=== PATIENT | female | born 1945 | race Caucasian/White ===

== ENCOUNTER 2022-12-08 10:41 | Outpatient (RCR) | payer MEDICARE, SELFPAY | END 2022-12-08 10:45 | disposition home or self-care (01) | LOC: PT 10:41 | PROVIDERS: Visit Provider Nurse Practitioner | DX: I89.0 Lymphedema, not elsewhere classified (principal) | CPT/HCPCS: 97162 ==

== ENCOUNTER 2023-03-13 13:04 | Outpatient (CLI) | payer MEDICARE, SELFPAY | END 2023-03-13 13:25 | disposition home or self-care (01) | LOC: INF 13:06 | PROVIDERS: PCP Nurse Practitioner; Visit Provider Nurse Practitioner | DX: D50.9 Iron deficiency anemia, unspecified (principal); Z45.2 Encounter for adjustment and management of vascular access device | CPT/HCPCS: 96523; J1642 ==

== ENCOUNTER 2023-05-08 10:51 | Outpatient (CLI) | payer MEDICARE, SELFPAY ==
[2023-05-08 13:06] VITALS: BMI 40.1
== END 2023-05-08 11:30 | disposition home or self-care (01) ==
LOC: INF 10:52
PROVIDERS: PCP Nurse Practitioner; Visit Provider Nurse Practitioner
DX: D50.9 Iron deficiency anemia, unspecified (principal)
CPT/HCPCS: 96523; J1642

== ENCOUNTER 2023-06-19 10:22 | Outpatient (CLI) | payer MEDICARE, SELFPAY | END 2023-06-19 10:39 | disposition home or self-care (01) | PROVIDERS: PCP Nurse Practitioner; Visit Provider Nurse Practitioner | DX: D50.9 Iron deficiency anemia, unspecified (principal); Z45.2 Encounter for adjustment and management of vascular access device | CPT/HCPCS: 96523; J1642 ==

== ENCOUNTER → 2023-07-11 09:35 | Outpatient (CLI) | payer MEDICARE, SELFPAY ==
[2023-07-11 12:49] LABS: Microscopic, Urine URINE MICROSCOPIC (MICROSCOPIC)
[2023-07-11 13:53] LABS: Appearance,Urine CLOUDY (Clear); Bilirubin,Urine Negative (Negative); Blood, Urine 1+ (Negative); Color,Urine YELLOW (Yellow); Glucose,Urine (UA) Negative (Negative); Ketones,Urine Negative (Negative); Leukocyte Esterase,Urine 2+ (Negative); Nitrate,Urine Negative (Negative); Protein,Urine Negative (Negative); Specific Gravity, Urine 1.025 (1.005-1.030); Urobilinogen,Urine 0.2 EU/dl (0.2)
[2023-07-11 14:05] LABS: Erythrocyte Sedimentation Rate 54 mm/hr (0-30)
[2023-07-11 14:13] LABS: WBC,Urine 50-100 #/hpf (0-3)
[2023-07-11 14:14] LABS: Bacteria,Urine 1+ /lpf
[2023-07-11 14:54] LABS: Benzodiazepines Screen,Urine Negative ng/ml (<200)
[2023-07-11 14:55] LABS: Amphetamine/Metha Screen,Urine Negative ng/ml (<1000)
[2023-07-11 14:57] LABS: Cannabinoid Screen,Urine Negative ng/ml (<50); Cocaine Screen,Urine Negative ng/ml (<300)
[2023-07-11 14:58] LABS: Methadone Screen,Urine Negative ng/ml (<300); Opiate Screen,Urine Negative ng/ml (<300)
[2023-07-11 14:59] LABS: Phencyclidine Screen,Urine Negative ng/ml (<25)
[2023-07-11 15:13] LABS: C-Reactive Protein 10.2 mg/L (0-4)
[2023-07-11 15:15] LABS: Barbiturates Screen,Urine Negative ng/ml (<200)
[2023-07-11 15:39] LABS: Folate > 20.00 ng/mL
[2023-07-11 18:11] LABS: Hemoglobin A1C 5.5 % (4.0-6.0)
[2023-07-12 10:14] LABS: Rapid Plasma Reagin Ab Titer Non Reactive titer (NonRea<1:1)
== END ==
PROVIDERS: PCP Nurse Practitioner; Visit Provider Nurse Practitioner Family
DX: G93.40 Encephalopathy, unspecified (principal); R44.3 Hallucinations, unspecified; E11.9 Type 2 diabetes mellitus without complications; R51.9 Headache, unspecified; R26.9 Unspecified abnormalities of gait and mobility; G47.30 Sleep apnea, unspecified; I10 Essential (primary) hypertension; B96.1 Klebsiella pneumoniae [K. pneumoniae] as the cause of diseases classified elsewhere; R42 Dizziness and giddiness; Z79.899 Other long term (current) drug therapy
CPT/HCPCS: 36415; 80305; 81001; 82746; 83036; 85651; 86140; 86593; 87086; 95813; 95816

== ENCOUNTER 2023-07-13 07:43 | Observation (INO) | payer MEDICARE, SELFPAY ==
[2023-07-13] VITALS (12 sets, daily range): BP systolic 91–144; BP diastolic 55–93; PULSE 78–111; RESP 16–21; TEMP 36.7–38.7; O2SAT 94–99; BMI 43.0; BMI 43.5
--- NOTE | 2023-07-13 07:31 | ECG_ITS ---
APPROVED REPORT Exam: Resting ECG HR:114 bpm ECG Measurements Heart Rate 114 AXES NJ 176 P 86 QRSd 93 QRS 44 QT 361 T 67 QTc 428 Conclusion SINUS TACHYCARDIA WITH OCCASIONAL VENTRICULAR PREMATURE COMPLEXES WITH OCCASIONAL SUPRAVENTRICULAR PREMATURE COMPLEXES NONSPECIFIC ST & T-WAVE ABNORMALITY ABNORMAL RHYTHM ECG UNCONFIRMED REPORT Electronically signed by : Martín Man MD 07/14/2023 12:41:11
--- NOTE | 2023-07-13 07:32 | XR_ITS ---
FINAL REPORT CLINICAL HISTORY: MARY mejia COMPARISON: 05/11/2023 FINDINGS: A single portable view of the chest was obtained. A right chest port is present with its tip in the superior vena cava, unchanged. The heart size and pulmonary vascularity are within normal limits. The mediastinum is within normal limits. There is a new opacity in the right lung base compared to the prior exam of April, consistent with atelectasis or pneumonia. The bony thorax is intact. IMPRESSION: New right lung base opacity consistent with atelectasis or pneumonia. Reviewed, Interpreted and Dictated by Sai Westbrook III, MD Transcribed by Shana Houser Authenticated and [facility]
--- NOTE | 2023-07-13 07:40 | HMH.EDGENADL ---
Discharge Plan Disposition Patient Disposition: Admitted Chief Complaint: Chest Pain Prescriptions Prescriptions: No Action multivitamin [Daily Multi-Vitamin] Tablet 1 tab PO DAILY fluconazole 150 mg tablet 150 mg PO WEEKLY dicyclomine 20 mg Tablet 20 mg PO TID cetirizine 10 mg Capsule 10 mg PO DAILY Eliquis 5 mg Tablet 5 mg PO BID albuterol-budesonide 90-80 mcg/actuation Hfa Aerosol Inhaler 2 inh INHALATION QID PRN (Reason: Breathing Problems) metoprolol succinate 50 mg Tablet Extended Release 24 Hr 50 mg PO DAILY isosorbide mononitrate 30 mg Tablet Extended Release 24 Hr 30 mg PO DAILY ferrous sulfate 325 mg (65 mg iron) Tablet 325 mg PO DAILY ergocalciferol (vitamin D2) 1,250 mcg (50,000 unit) Capsule 1,250 mcg PO WEEKLY magnesium chloride 70 mg Tablet,Delayed Release (Dr/Ec) 70 mg PO DAILY methocarbamol 1,000 mg Tablet 1,000 mg PO QIDP PRN (Reason: muscle spasms) potassium chloride 20 mEq Tablet,Er Particles/Crystals 20 meq PO DAILY trazodone 100 mg Tablet 100 mg PO HS pantoprazole 40 mg Tablet,Delayed Release (Dr/Ec) 40 mg PO DAILY paroxetine HCl 40 mg Tablet 40 mg PO DAILY Trelegy Ellipta 100-62.5-25 mcg Blister With Device 1 inh INHALATION DAILY Clinical Impressions Clinical Impression: Delirium, Acute UTI Pneumonia Qualifiers: Pneumonia type: due to unspecified organism Laterality: right Lung location: lower lobe of lung Qualified Code(s): J18.9 - Pneumonia, unspecified organism Discharge ED Provider: Anthony Garcia General Adult HPI General Chief complaint: Chest Pain Stated complaint: Chest pain Time Seen by Provider: 07/13/23 07:30 History of Present Illness HPI narrative: 77-year-old female history of hypertension, hyperlipidemia, A-fib on Eliquis, CAD, anxiety, diabetes, dementia presenting with chest pain. Patient states that 1 day prior to arrival , she had chest pains prior to going to bed. It was substernal/epigastric, radiates to the right side of her neck, associated with 1 episode of nonbloody, nonbilious vomiting. Also feeling short of breath. Patient denies diaphoresis. She also denies neurologic deficits, weakness, vision changes, fevers or chills, dysuria, hematuria, or any other concerns. Related Data Home Medications Medication Instructions Recorded Confirmed albuterol 90 mcg-budesonide 80 2 inh inhalation QID PRN Breathing 05/08/23 07/13/23 mcg/actuation HFA aerosol inhaler Problems apixaban 5 mg tablet (Eliquis) 5 mg PO BID Blood Thinner 05/08/23 07/13/23 cetirizine 10 mg capsule 10 mg PO DAILY seasonal allergies 05/08/23 07/13/23 dicyclomine 20 mg tablet 20 mg PO TID irritable bowel 05/08/23 07/13/23 syndrome ergocalciferol (vitamin D2) 1,250 1,250 mcg PO WEEKLY Supplement 05/08/23 07/13/23 mcg (50,000 unit) capsule ferrous sulfate 325 mg (65 mg 325 mg PO DAILY iron deficiency 05/08/23 07/13/23 iron) tablet fluticasone fur. 100 mcg-umeclid 1 inh inhalation DAILY Breathing 05/08/23 07/13/23 62.5 mcg-vilant 25 mcg Problems inhalat.powder (Trelegy Ellipta) isosorbide mononitrate 30 mg 30 mg PO DAILY Heart Disease 05/08/23 07/13/23 tablet,extended release 24 hr magnesium chloride 70 mg 70 mg PO DAILY Supplement 05/08/23 07/13/23 (magnesium chloride) tablet,delayed release methocarbamol 1,000 mg tablet 1,000 mg PO QIDP PRN muscle spasms 05/08/23 07/13/23 metoprolol succinate 50 mg 50 mg PO DAILY Heart Rhythm 05/08/23 07/13/23 tablet,extended release 24 hr pantoprazole 40 mg tablet,delayed 40 mg PO DAILY gerd 05/08/23 07/13/23 release paroxetine HCl 40 mg tablet 40 mg PO DAILY Depression 05/08/23 07/13/23 potassium chloride 20 mEq 20 meq PO DAILY Supplement 05/08/23 07/13/23 tablet,extended release(part/cryst) trazodone 100 mg tablet 100 mg PO HS sleep 05/08/23 07/13/23 fluconazole 150 mg tablet 150 mg PO WEEKLY 07/09/23 07/13/23
--- NOTE | 2023-07-13 07:43 | PC.NURSE ---
RAD at for CXR
--- NOTE | 2023-07-13 07:44 | PC.NURSE ---
portable xray at bedside
[2023-07-13 07:51] LABS: Basophils % 0.2 % (0.1-2.0); Eosinophils # 0.1 K/mm3 (0.0-0.4); Eosinophils % 1.1 % (0.1-12.0); Hematocrit 34.8 % (37.0-47.0); Hemoglobin 11.5 g/dL (12.2-16.2); Lymphocytes # 0.4 K/mm3 (0.7-4.5); Lymphocytes % 2.6 % (10-50); Mean Corpuscular Hemoglobin 28.8 pg (27.0-31.2); Mean Corpuscular Volume 87.3 fl (81-99); Mean Platelet Volume 8.8 fl (7.4-10.4); Monocytes # 0.4 K/mm3 (0.1-1.0); Monocytes % 2.6 % (1.7-9.3); Neutrophils # 12.5 K/mm3 (1.8-7.8); Neutrophils % 93.5 % (37.0-80.0); Platelet Count 179 K/mm3 (142-424); Red Blood Count 3.98 M/mm3 (4.20-5.40); Red Cell Distribution Width 16.6 % (11.5-17.5); White Blood Count 13.4 K/mm3 (4.8-10.8)
[2023-07-13 07:59] LABS: Acetone, Serum (Rapid) None Detected (None Detect); Alanine Aminotransferase 117 U/L (12-78); Alkaline Phosphatase 356 U/L (38-126); Aspartate Amino Transferase 268 U/L (14-36); Bilirubin,Total 0.5 mg/dl (0.2-1.3); Blood Urea Nitrogen 17 mg/dl (7-17); Carbon Dioxide 28 mmol/L (22.0-30.0); Chloride 101 mmol/L (98-107); Creatinine Clearance Estimated 34 mL/min (50-200); Estimated Glomerular Filt Rate 54 ml/min (>60); GFR (African American) 65 ML/MIN (>60); Lipase 33 U/L (23-300)
[2023-07-13 08:00] LABS: Albumin Level 3.5 g/dl (3.5-5.0); Albumin/Globulin Ratio 1.3 (1.1-1.8); Anion Gap 11.6 mEq/L (5-15); Calcium 8.2 mg/dl (8.4-10.2); Globulin 2.7 g/dL (1.3-3.2); Glucose 162 mg/dl (74-100); Potassium 3.6 mmoL/L (3.5-5.1); Sodium 137 mmol/L (136-145); Total Protein,Serum 6.2 g/dl (6.3-8.2)
[2023-07-13 08:10] LABS: MANUAL DIFFERENTIAL MANUAL DIFFERENTIAL (MANUAL DIFF)
[2023-07-13 08:16] LABS: T4 (Thyroxine) 10.7 ug/dl (5.53-11.0)
[2023-07-13 08:24] LABS: Troponin I < 0.01 ng/ml (0.00-0.034)
[2023-07-13 08:26] LABS: Lymphocytes % 3 % (10-50); Monocytes % 7 % (2-9); Neutrophils % 90 % (42-76); Platelet Estimate Normal; RBC Morphology Normal; Total Cells Counted 100
[2023-07-13 08:30] LABS: Thyroid Stimulating Hormone 0.65 uIU/mL (0.465-4.68)
--- NOTE | 2023-07-13 08:30 | PC.NURSE ---
asked er md about the need for blood cultures before administering antibiotics. he states he doesn't want them.
--- NOTE | 2023-07-13 08:37 | PC.NURSE ---
Dr. Garcia at BS to update pt/family on results and POC
--- NOTE | 2023-07-13 08:51 | PC.NURSE ---
Dr. Garcia speaking with Dr. Grossman about possible admission
--- NOTE | 2023-07-13 09:09 | PC.NURSE ---
Pt brief changed and purewick placed. Pt has noticeable red areas under abdominal fold, between legs, and on buttock area. RN Aware. Pt repositioned in bed for comfort. Family remains at .
--- NOTE | 2023-07-13 09:23 | PC.NURSE ---
LAB at to drawn blood cx
--- NOTE | 2023-07-13 09:36 | HMH.PHAINT1 ---
Pharmacy Intervention Comments: MEDICATION RECONCILIATION COMPLETED ON PATIENT USING EXTERNAL FILL HISTORY FROM PHARMACY. -YAEL ARCE, NAJMAD
--- NOTE | 2023-07-13 09:58 | PC.NURSE ---
Report given to SOFIA Riley on Med Surg.
[2023-07-13 11:48] LABS: Troponin I < 0.01 ng/ml (0.00-0.034)
[2023-07-13 12:18] LABS: NT Pro Brain Natriuretic Pep. 1880 pg/mL (0-450)
--- NOTE | 2023-07-13 12:24 | PC.WOUNDNOTE ---
REDNESS AND DISCOLORATION NOTED TO PT BOTTOM RIGHT SIDE ABD FOLD LEFT SIDE ABD FOLD
--- NOTE | 2023-07-13 12:29 | CA_ITS ---
APPROVED REPORT EXAM: Comprehensive 2D, Doppler, and color-flow Echocardiogram Nurse Recruiter: Lisa Camargo RT(R) Ht: 5 ft 0 in Wt: 223lbs BSA: 1.96 BP: 148/74 mmHg Indications: edema, CP, HTN, DM, AFIB, CAD, hyperlipidemia 2D Dimensions LVOT 2.01 cm (M/F) 1.5-2.5 LA Volume 44.00 mL LA Volume Index 22.45 mL/m2 (M/F) 16-34 M-Mode Dimensions RVDd 2.67 cm (0.9-2.6) LA Diam 4.17 cm (1.9-4.0) LVDd 5.35 cm (3.5-5.7) Ao Diam 3.07 cm (2.0-3.7) LVDs 3.99 cm (3.5-5.7) IVSd 1.15 cm (0.6-1.1) PWd 0.59 cm (0.6-1.1) EF (Teich) 49.70% FS 25.40% EDV (Teich) 138.30 mL ESV (Teich) 69.60 mL LV Diastology E Decel Time 330.00 (160-240 msec) E/A Ratio 0.9 MED E' 6.10 (< 7 cm/sec) E'/MED E' Ratio 18.30 (>14) LAT E' 6.50 (<10 cm/sec) E/LAT E' Ratio 17.17 (>14) Aortic Valve AO VTI 34.28 (18-25 cm) Mitral Valve MV E Max Dat. 112.00 (40-130 cm/s) MV A Velocity 120.00 (40-130 cm/s) E/A Ratio 0.93 MV Decel. Time 330.00 (160-240 ms) MV PHT 97.00 ms Tricuspid Valve TR P. Velocity 260.00 cm/s Left Ventricle The left ventricle is normal size. The left ventricular systolic function is normal. The left ventricular ejection fraction is within the normal range. There is increased LV wall thickness. There is normal LV segmental wall motion. Transmitral Doppler flow pattern suggests impaired LV relaxation. LVEF is 55%. Right Ventricle The right ventricle is normal size. The right ventricular systolic function is normal. Atria Left atrium is mildly dilated. There is no Doppler evidence of interatrial shunt. Aortic Valve The aortic valve is mildly thickened. Aortic sclerosis, but no evidence of aortic stenosis. Trace aortic regurgitation. Mitral Valve Mild mitral annular calcification (MAC). The mitral valve leaflets are mildly thickened. No evidence of mitral valve stenosis. Trace mitral regurgitation. Tricuspid Valve The tricuspid valve leaflets are thin and pliable. Pulmonic Valve The pulmonary valve is not well visualized. Great Vessels The aortic root is normal in size. The ascending aorta is normal in size. IVC is normal in size and collapses >50% with inspiration. Pericardium There is no pericardial effusion. Other Information Study Quality: Technically Difficult Conclusion Technically difficult study due to poor accoustic windows. Normal biventricular systolic function. Mild LA dilation. No significant valvular stenosis or regurgitation in the visualized valves. Electronically signed by : Velma Serrano MD 07/15/2023 14:14:36
--- NOTE | 2023-07-13 14:56 | HMH.PTEV ---
Physical Therapy Evaluation Rehab PT IP Evaluation Start: 07/13/23 08:59 Freq: ONCE Status: Active Protocol: Document 07/13/23 14:36 PARULSUNNY (Rec: 07/13/23 14:56 YAIMAXENIA [id number]) Subjective/History History History Pt is a 77 y/o female with history of hypertension, hyperlipidemia, A-fib on Eliquis, CAD, anxiety, diabetes, dementia presenting to [facility] ER On 07/13/23 with c/o chest pain. Patient states that 1 day prior to arrival , she had chest pains prior to going to bed. It was substernal/epigastric, radiates to the right side of her neck, associated with 1 episode of nonbloody, nonbilious vomiting. Also feeling short of breath. Patient denies diaphoresis. She also denies neurologic deficits, weakness, vision changes, fevers or chills, dysuria, hematuria, or any other concerns. Subjective Subjective Pt reports she lives at home with 3 family members. Pt reports she is never left alone. Pt reports they take care of her including bathing, dressing, toileting hygiene, cooking/cleaning and grocery shopping. Pt reports she uses a rollator to walk to the bathroom and to the kitchen. Pt reports she sleeps in the recliner due to difficulty getting in/out of the bed. Pt reports she has a terrible headache and has requested Tylenol. New diagnosis of cancer in past 12 No months? Rehab PT IP Eval Objective Appearance Patient Behavior Appropriate,Cooperative Patient Orientation Person,Place,Name,Birthday Difficulty following instructions mild Speech Pattern Clear,Appropriate Ambulation Patient Able to Ambulate Yes Ambulation Observation IP General Gait Pattern Observation Wide Based Gait,Shuffling Step Ambulation Distance (feet) 6 A
--- NOTE | 2023-07-13 15:03 | HMH.OTEV ---
OT Inpatient Evaluation Rehab OT IP Evaluation Start: 07/13/23 08:59 Freq: ONCE Status: Active Protocol: Document 07/13/23 14:14 MARLENANORBERT (Rec: 07/13/23 15:00 JASON [id number]) Rehab OT IP Assessment Subjective History 77-year-old female history of hypertension, hyperlipidemia, A-fib on Eliquis, CAD, anxiety , diabetes, dementia presenting with chest pain. Patient states that 1 day prior to arrival , she had chest pains prior to going to bed. It was substernal/ epigastric, radiates to the right side of her neck, associated with 1 episode of nonbloody, nonbilious vomiting . Also feeling short of breath. Patient denies diaphoresis. She also denies neurologic deficits, weakness, vision changes, fevers or chills, dysuria, hematuria, or any other concerns. I just want to go home. Patient lives with family in 1 story home with no TORIBIO. Patient uses a RW to ambulate in home. Family assist with all ADLs, bed mobility and transfers as needed. Subjective I can try to get up. Instructed Patient on safety awareness and proper foot wear to participate in bed mobility, transfers and ADLs. Patient required Mod A x2 to complete supine->sit @ EOB. Patient demonstrated good sitting balance at EOB. Patient stood up @ EOB without proper footwear with CGA. OT instructed Patient to sit back @ EOB so proper footwear can be donned to prevent fall risk . Assisted Patient to sit @ EOB. Patient verbalize that she was unable to lift B LE in order for OT to mahamed socks. Patient was then assisted back
[2023-07-13 16:16] LABS: Troponin I < 0.01 ng/ml (0.00-0.034)
--- NOTE | 2023-07-13 17:06 | EXP.HP ---
History of Present Illness *Admission Date: 07/13/23 *Reason for visit:: weakness, confusion *History of present illness: Ms. Martinez is a 77-year-old female who is dependent on her family for all ADLs. Has had progressive decline over the past 6 months since her 's passing. Moved in with her daughter and has become more debilitated, necessitating help with eating, ambulation, bathing. Family brought her to the ER today due to waking up this morning and appearing more confused. They states she was speaking out of her head, not making sense, mumbling and this is not like her. She has been undergoing workup as an outpatient for dementia. Has been remarking about seeing animals that are not present, horses on a roof in a house next-door that are obviously not there. But this morning's confusion was worse than normal. Family also states that she had 1 episode of nonbloody/nonbilious emesis. She has been more short of breath but afebrile. No chest pain, syncope, chills, dysuria. Workup in the ER concerning for UTI with grossly abnormal urine. Workup for stroke unremarkable. Given patient's debility and acute UTI, ER requested admission. Family at bedside after arriving to the floor. They expressed concern about ability to provide further care for patient. [facility] Disclaimer: The information contained in this section may have been updated after the patient was seen, as this information can be updated by other users. Medical History Anxiety Arthritis Asthma Atrial fibrillation Cataracts, bilateral Depression Diabetes Gait disturbance GERD (gastroesophageal reflux disease) Hallucinations Heart disease High blood pressure Hypomagnesemia Iron deficiency anemia Lymphedema Macular degeneration Uterine cancer UTI (urinary tract infection) Surgical History H/O hernia repair H/O partial resection of colon History of appendectomy History of cholecystectomy History of hysterectomy Family History No significant family history Diabetes Coronary artery disease Hyperlipidemia Hypertension Social History Smoking Status: Never smoker alcohol intake: never current occupational status: retired and disabled Travel in the last 8 weeks: None adopted: No caregiver/support person: Yes foster care: No household members: family housing: house lives independently: No marital status: current occupational exposures/hazards: No sexually active: No Review of Systems Review of Systems Review of systems (narrative): 14 point review of systems performed, pertinent positives and negatives as per HPI Meds Home Medications and Allergies Home Medications Medication Instructions Recorded Confirmed Type apixaban 5 mg tablet (Eliquis) 5 mg PO BID Blood Thinner/Afib 05/08/23 07/13/23 History cetirizine 10 mg capsule 10 mg PO DAILY Allergy Symptoms 05/08/23 07/13/23 History dicyclomine 20 mg tablet 20 mg PO TID irritable bowel 05/08/23 07/13/23 History syndrome ergocalciferol (vitamin D2) 1,250 1,250 mcg PO WEEKLY Supplement 05/08/23 07/13/23 History mcg (50,000 unit) capsule ferrous sulfate 325 mg (65 mg 325 mg PO DAILY Supplement 05/08/23 07/13/23 History iron) tablet fluticasone fur. 100 mcg-umeclid 1 inh inhalation DAILY Breathing 05/08/23 07/13/23 History 62.5 mcg-vilant 25 mcg Problems inhalat.powder (Trelegy Ellipta) isosorbide mononitrate 30 mg 30 mg PO DAILY High Blood Pressure 05/08/23 07/13/23 History tablet,extended release 24 hr magnesium chloride 70 mg 70 mg PO DAILY Supplement 05/08/23 07/13/23 History (magnesium chloride) tablet,delayed release methocarbamol 1,000 mg tablet 1,000 mg PO QIDP PRN muscle spasms 05/08/23 07/13/23 History metoprolol succinate 50 mg
--- NOTE | 2023-07-13 17:25 | PC.NURSE ---
A&OX3 BUT WITH INTERMITTENT CONFUSION. PT FOUND TO HAVE +2-3 PITTING EDEMA AND REDNESS TO BLE. PT ALSO HAS SEVERE EXCORIATION TO ABD FOLDS. (SEE WOUND NOTE). AREA KEPT CLEAN AND DRY, POWDER APPLIED AND PILLOW CASES IN PLACE. PURE WICK IN PLACE, PT TOLERATING WELL. PT DID GET UP TO CHAIR, X2 ASSIST. FAMILY HAS BEEN IN AND OUT. PT C/O HEADACHE, TX WITH TYLENOL PER OCT, ON REASSESSMENT PT RESTING COMFORTABLY IN BED. NO OTHER NEEDS OR C/O NOTED THUS FAR. PT IV DID GET PULLED OUT DURING PT SESSION. NEW ULTRASOUND GUIDED IV PLACED BY HOUSE. PT TOLERATED WELL. VSS.
[2023-07-14] VITALS (10 sets, daily range): BP systolic 108–128; BP diastolic 56–79; PULSE 69–88; RESP 16–18; TEMP 36.6–36.9; O2SAT 91–97; BMI 41.2
[2023-07-14 07:50] LABS: Basophils % 0.1 % (0.1-2.0); Eosinophils # 0.2 K/mm3 (0.0-0.4); Eosinophils % 0.9 % (0.1-12.0); Hematocrit 32.8 % (37.0-47.0); Hemoglobin 10.7 g/dL (12.2-16.2); Lymphocytes % 5.8 % (10-50); Mean Corpuscular HGB Conc 32.6 g/dL (31.8-35.4); Mean Platelet Volume 8.7 fl (7.4-10.4); Monocytes # 0.6 K/mm3 (0.1-1.0); Monocytes % 3.7 % (1.7-9.3); Neutrophils % 89.4 % (37.0-80.0); Platelet Count 167 K/mm3 (142-424); Red Blood Count 3.68 M/mm3 (4.20-5.40); Red Cell Distribution Width 16.9 % (11.5-17.5); White Blood Count 16.8 K/mm3 (4.8-10.8)
[2023-07-14 07:56] LABS: Anion Gap 9.4 mEq/L (5-15); Blood Urea Nitrogen 23 mg/dl (7-17); Carbon Dioxide 30 mmol/L (22.0-30.0); Chloride 99 mmol/L (98-107); Creatinine Clearance Estimated 33 mL/min (50-200); Estimated Glomerular Filt Rate 54 ml/min (>60); GFR (African American) 65 ML/MIN (>60); Glucose 108 mg/dl (74-100); MANUAL DIFFERENTIAL MANUAL DIFFERENTIAL (MANUAL DIFF); Potassium 3.4 mmoL/L (3.5-5.1); Sodium 135 mmol/L (136-145)
[2023-07-14 07:57] LABS: Alanine Aminotransferase 64 U/L (12-78); Albumin Level 3.2 g/dl (3.5-5.0); Albumin/Globulin Ratio 1.2 (1.1-1.8); Alkaline Phosphatase 237 U/L (38-126); Aspartate Amino Transferase 75 U/L (14-36); Bilirubin,Total 0.5 mg/dl (0.2-1.3); Calcium 7.8 mg/dl (8.4-10.2); Globulin 2.6 g/dL (1.3-3.2); Magnesium 1.2 mg/dl (1.6-2.3); Total Protein,Serum 5.8 g/dl (6.3-8.2)
--- NOTE | 2023-07-14 09:27 | EXP.ACUTE.PN ---
Subjective *Date: 07/14/23 *Time: 09:27 Interval history: Patient interactive this morning more alert. Has hesitation in going to a residential. Does not feel she would benefit from therapy. Extensive discussion about patient's needs. States she has 4 adults at home. Discussion with family at home however report that patient is difficult for them to handle. Would benefit from rehab to get stronger and be more mobile and independent. Patient tolerating p.o. intake. Afebrile. Labs stable this morning. On room air. Diuresing well, -2 L since admission. Medical Exam Vital signs and Labs for Last 24 Hours: Vital Signs Temp Pulse Pulse Resp BP BP Pulse Ox 07/14/23 08:00 85 07/14/23 07:54 98.2 F 77 17 116/79 97 07/14/23 06:36 07/14/23 04:00 79 07/14/23 04:00 98.4 F 73 16 114/56 L 94 L 07/14/23 00:00 98.3 F 88 18 108/60 L 95 07/14/23 05:00 07/14/23 03:00 07/14/23 01:00 07/14/23 00:00 86 07/13/23 20:00 84 07/13/23 23:00 07/13/23 20:00 98.4 F 82 16 109/55 L 97 07/13/23 21:00 07/13/23 20:00 07/13/23 18:30 07/13/23 16:00 80 07/13/23 16:38 07/13/23 15:57 98.0 F 78 20 119/56 L 94 L 07/13/23 14:52 07/13/23 12:47 07/13/23 12:00 100 H 07/13/23 11:24 07/13/23 11:00 07/13/23 10:49 98.4 F 105 H 20 91/62 L 96 07/13/23 10:12 99.4 F 101 H 20 91/63 L 07/13/23 09:55 96 H 20 113/67 95 O2 Del Method 07/14/23 08:00 07/14/23 07:54 Room Air 07/14/23 06:36 Room Air 07/14/23 04:00 07/14/23 04:00 Room Air 07/14/23 00:00 Room Air 07/14/23 05:00 Room Air 07/14/23 03:00 Room Air 07/14/23 01:00 Room Air 07/14/23 00:00 07/13/23 20:00 07/13/23 23:00 Room Air 07/13/23 20:00 Room Air 07/13/23 21:00 Room Air 07/13/23 20:00 Room Air 07/13/23 18:30 Room Air 07/13/23 16:00 07/13/23 16:38 Room Air 07/13/23 15:57 Room Air 07/13/23 14:52 Room Air 07/13/23 12:47 Room Air 07/13/23 12:00 07/13/23 11:24 Room Air 07/13/23 11:00 Room Air 07/13/23 10:49 Room Air 07/13/23 10:12 Room Air 07/13/23 09:55 Intake and Output 07/13/23 07/14/23 07/14/23 23:59 07:59 15:59 Intake Total 0 / 400 770 / 770 Output Total 1000 / 2200 1600 / 1600 Balance -1000 / -1800 -830 / -830 Intake: Intake, Oral Amount 0 / 400 770 / 770 Output: Output, Urine Amount 1000 / 2200 1600 / 1600 Other: Number of Unmeasured Voids 1 0 1 Weight 95.311 kg Patient Weight 07/14/23 23:59 Weight 95.311 kg Laboratory Results - last 24 hr 07/13/23 11:05: Troponin I < 0.01, NT-Pro-B Natriuret Pep 1880 H 07/13/23 15:40: Troponin I < 0.01 07/14/23 07:21: WBC 16.8 H D, RBC 3.68 L, Hgb 10.7 L, Hct 32.8 L, MCV 89.0, MCH 29.0, MCHC 32.6, RDW 16.9, Plt Count 167, MPV 8.7, Neut % (Auto) 89.4 H, Lymph % (Auto) 5.8 L, [place] % (Auto) 3.7, Eos % (Auto) 0.9, Baso % (Auto) 0.1, Neut # (Auto) 15.0 H, Lymph # (Auto) 1.0, [place] # (Auto) 0.6, Eos # (Auto) 0.2, Baso # (Auto) 0.0, Sodium 135 L, Potassium 3.4 L, Chloride 99, Carbon Dioxide 30, Anion Gap 9.4, BUN 23 H D, Creatinine 1.00, Estimated Creat Clear 33, Estimated GFR 54 L, Est GFR ( Amer) 65, Glucose 108 H D, Calcium 7.8 L, Magnesium 1.2 L, Total Bilirubin 0.5, AST 75 H D, ALT 64 D, Alkaline Phosphatase 237 H, Total Protein 5.8 L, Albumin 3.2 L, Globulin 2.6, Albumin/Globulin Ratio 1.2 I & O for Labs for Last 24 Hours: Intake & Output 07/11/23 07/12/23 07/13/23 07/14/23 23:59 23:59 23:59 23:59 Intake Total 100 / 400 770 / 770 Output Total 1000 / 2200 1600 / 1600 Balance -900 / -1800 -830 / -830 Weight 101.179 kg 95.311 kg Constitutional: Present no acute distress, morbidly obese and chronically ill appearing Head: Present atraumatic and normocephalic ENT: Present normal exam Comment:: edentulous Respiratory: Present normal respiratory effort; Absent
[2023-07-14 09:54] LABS: Lymphocytes % 10 % (10-50); Monocytes % 2 % (2-9); Neutrophils % 88 % (42-76); Total Cells Counted 100
[2023-07-14 09:55] LABS: Platelet Estimate Normal; RBC Morphology Normal
--- NOTE | 2023-07-14 10:36 | EXP.EVENT.NO ---
Advance care planning note: Active diagnosis: Mild cognitive impairment, debility, A-fib, diabetes, debility, COPD The patient's active diagnoses are of sufficient risk that focused discussion on advanced care planning is indicated in order to allow the patient to thoughtfully consider personal goals of care; and, if situations arise that prevent the ability to personally give input, to ensure appropriate representation of their personal desires through documentation or informed surrogate decision makers. Discussion: Persons present and participating in discussion: patient, her daughter, her son-in-law. Discussion: Discussed patient's progressive decline, her increased support needs at home, leg swelling and immobility, difficulty with her care. Discussed the need for therapy and detention. Active discussion with family about placement versus home with home health. Patient has anxiety about having help at home but after much discussion understands the benefit and having assistance. Understands that she is a lot to care for but feels that the for adults at home can handle it. There is mixed opinion between family as to whether they are able to meet her needs but they are very hesitant to consider penitentiary placement. Discussed optimizing treatment to get her home in the best situation possible with care to help make her successful and help give her a chance to improve in strength and mobility. Will plan to pursue discharge home once stable with home health and a nurse aide to assist with ADLs 1-2 times a week. Patient amenable to allowing PT and OT in the home to work with her. Especially if this allows her to stay in the home setting as she is nervous and scared about possibly going to a penitentiary. Time spent: Total time spent [id number] in education and discussion directly related to advance care plannin minutes
--- NOTE | 2023-07-14 17:24 | PC.NURSE ---
Patient continuing IV antibiotics and diuresing. Patient intermittently confused and VSS.
[2023-07-15] VITALS: BP 110/66; PULSE 81; RESP 17; TEMP 36.7
[2023-07-15 04:00] VITALS: BP 131/72; PULSE 65; PULSE 68; RESP 18; TEMP 36.6; O2SAT 94; BMI 39.9
--- NOTE | 2023-07-15 05:38 | PC.NURSE ---
NO FURTHER C/O FRONTAL H/A SINCE TYLENOL 650 MG PO EARLY IN THE SHIFT. TELE READING SINUS ARERHYTHMIA WITH PACs AND PVCs. NO C/O DYSURIA OR HEMATURIA. PURE WICK IN USE, URINE CLEAR YELLOW. .02 SAT 94% ON ROOM AIR. VSS/AFEBRILE. NO COUGHING NOTED. STILL NEED SPUTUM.
[2023-07-15 08:00] VITALS: BP 140/64; PULSE 70; PULSE 90; RESP 18; TEMP 36.6; O2SAT 95
[2023-07-15 08:24] LABS: Alanine Aminotransferase 47 U/L (12-78); Albumin Level 3.1 g/dl (3.5-5.0); Albumin/Globulin Ratio 1.1 (1.1-1.8); Alkaline Phosphatase 227 U/L (38-126); Anion Gap 5.5 mEq/L (5-15); Aspartate Amino Transferase 41 U/L (14-36); Bilirubin,Total 0.3 mg/dl (0.2-1.3); Blood Urea Nitrogen 21 mg/dl (7-17); Calcium 7.9 mg/dl (8.4-10.2); Carbon Dioxide 35 mmol/L (22.0-30.0); Chloride 98 mmol/L (98-107); Creatinine Clearance Estimated 63 mL/min (50-200); Estimated Glomerular Filt Rate 48 ml/min (>60); GFR (African American) 58 ML/MIN (>60); Globulin 2.8 g/dL (1.3-3.2); Glucose 120 mg/dl (74-100); Magnesium 1.5 mg/dl (1.6-2.3); Potassium 3.5 mmoL/L (3.5-5.1); Sodium 135 mmol/L (136-145); Total Protein,Serum 5.9 g/dl (6.3-8.2)
--- NOTE | 2023-07-15 10:08 | EXP.DC.SUM ---
General Admission date:: 07/13/23 Discharge date: 07/15/23 HPI HPI HPI: Ms. Martinez is a 77-year-old female who is dependent on her family for all ADLs. Has had progressive decline over the past 6 months since her 's passing. Moved in with her daughter and has become more debilitated, necessitating help with eating, ambulation, bathing. Family brought her to the ER today due to waking up this morning and appearing more confused. They states she was speaking out of her head, not making sense, mumbling and this is not like her. She has been undergoing workup as an outpatient for dementia. Has been remarking about seeing animals that are not present, horses on a roof in a house next-door that are obviously not there. But this morning's confusion was worse than normal. Family also states that she had 1 episode of nonbloody/nonbilious emesis. She has been more short of breath but afebrile. No chest pain, syncope, chills, dysuria. Workup in the ER concerning for UTI with grossly abnormal urine. Workup for stroke unremarkable. Given patient's debility and acute UTI, ER requested admission. Family at bedside after arriving to the floor. They expressed concern about ability to provide further care for patient. Hospital Course Hospital Course Hospital Course: Ms. Martinez is a 77-year-old female who presents with acute worsening of delirium. Workup in the ER positive for UTI. Discussion with ER physician, request admission for IV antibiotics, therapy eval, and further management. Medicine agreed to admit. PT and OT consulted. Case management consulted to assist with placement versus home health. Family wishes to take patient home. Home health consult placed. Stable for discharge. Continue treatment for UTI. Discussed plan with patient's daughter and son-in-law, agree with taking patient home today. Problems addressed as follows: Confusion, improved Dementia -Patient aware that she has been seeing things. She is interactive on exam this morning. Alert to person and place. Concern for mild cognitive impairment at minimum. Acute worsening likely due to infection. Able to answer questions appropriately on exam. No focal neurologic deficits. Continue further workup with neurology as an outpatient UTI -Grossly abnormal urine with white cells, bacteria, nitrates and leuk esterase. Urine culture showing greater than 100,000 CFU's of gram-negative rods. Still awaiting speciation and sensitivity. Transitioned to Levaquin 750 mg daily to complete 7-day course orally at home. Afebrile for over 48 hours. No nausea or vomiting. Back to baseline mentation. Intertrigo: Significant rash in folds of skin, will place dry cotton cloths and nystatin powder during admission. Continue at home. A-fib Electrolyte disturbances -Continue Eliquis for anticoagulation with 5mg bid, continue metoprolol succinate 50 mg daily. Rate controlled at this time -Continue diuresis for volume overload, Bumex 1 mg twice daily. Diuresing well with -2 L since admission. Potassium 3.5, magnesium 1.5. Replaced prior to discharge. Would benefit from repeat labs in 1 week. With CBC, CMP, magnesium. Anxiety: Continue Paxil 40 daily Hypertension: Isosorbide mononitrate 30 mg daily Iron deficient anemia: Continue home ferrous sulfate 325 mg daily Irritable bowel: Continue Bentyl 20 mg 3 times daily Spent 30 minutes in discharge counseling and direct care with patient. Exam Data for Last 24 hours Vital signs and Labs for Last 24 Hours: Temp Pulse Resp BP Pulse Ox O2 Del Method 97.8 F 70 18 140/64 95 Room Air 07/15/23 08:00 07/15/23 08:00 07/15/23 08:00 07/15/23 08:00 07/15/23 08:00 07/15/23 08:00 Laboratory Results - last 24 hr 07/15/23 07:43: Sodium 135 L, Potassium 3.5, Chloride 98, Carbon Dioxide 35 H, Anion Gap 5.5, BUN 21 H, Creatinine 1.10 H, Estimated Creat Clear 63, Estimated GFR 48 L, Est GFR ( Amer) 58 L, Glucose 120 H, Calc
--- NOTE | 2023-07-15 11:08 | HMH.PHAINT1 ---
Pharmacy Intervention Comments: DISCHARGE MEDICATION COUNSELING PROVIDED. DISCUSSED STOPPING THE FLUCONAZOLE, START THE FOLLOWING: -BUMETANIDE (FLUID PILL, DAILY, TAKE IN THE MORNING TO AVOID NOCTURIA, DIZZINESS, LIGHTHEADEDNESS, LOW BP, LOW POTASSIUM LEVEL - IRREGUAR HEARTBEAT/MUSCLE CRAMPING/WEAKNESS) -LEVOFLOXACIN (ANTIBIOTIC, DAILY, START TOMORROW, N/V/D POSSIBLE) -NYSTATIN (FOR SKIN CONDITION, APPLY TO AFFECTED AREA THREE TIMES DAILY) PATIENT VERBALIZED NO QUESTIONS AT THIS TIME.
--- NOTE | 2023-07-16 08:17 | SW/DCPLANNER ---
Addendum entered by La Suazo 07/16/23 10:54: Neema hylton/ [facility] stated that services will begin this week for this patient. Addendum entered by La Suazo 07/16/23 08:45: Patient/family are agreeable to [facility]. Original Note: Patient discharged over the weekend 07/15/23. MD ordered home health services at time of discharge. Patient information/order has been faxed to [facility]: I will follow up once reviewed.
--- NOTE | 2023-07-16 15:47 | CARE MANAGER ---
Called and spoke with patient's granddaughter regarding recent discharge. She stated that patient is doing well. Plans to schedule f/u appt with PCP and was able to olive picker and start new medication prescribed at discharge.
== END 2023-07-15 11:09 | disposition home health service (06) ==
LOC: ER 08:59 → 2ND 09:37
PROVIDERS: Admitting Provider Internal Medicine Adolescent Medicine; Emergency Provider Emergency Medicine; Visit Provider Internal Medicine Adolescent Medicine
DX: R41.0 Disorientation, unspecified (principal); N39.0 Urinary tract infection, site not specified; D50.9 Iron deficiency anemia, unspecified; W19.XXXA Unspecified fall, initial encounter; E11.9 Type 2 diabetes mellitus without complications; I48.91 Unspecified atrial fibrillation; F41.9 Anxiety disorder, unspecified; K21.9 Gastro-esophageal reflux disease without esophagitis; E66.01 Morbid (severe) obesity due to excess calories; E87.6 Hypokalemia; E83.42 Hypomagnesemia; Z79.01 Long term (current) use of anticoagulants; Z68.41 Body mass index [BMI] 40.0-44.9, adult; I10 Essential (primary) hypertension; L30.4 Erythema intertrigo; R06.9 Unspecified abnormalities of breathing; R07.9 Chest pain, unspecified
CPT/HCPCS: 36415; 71045; 80053; 82009; 83690; 83735; 83880; 84436; 84443; 84484; 85007; 85025; 87040; 93005; 93306; 94640; 97162; 97165; 99285; G0378; J0456; J0692; J0696; J3475

== ENCOUNTER → 2023-07-16 13:12 | Outpatient (CLI) | payer MEDICARE, SELFPAY ==
--- NOTE | 2023-07-16 13:14 | MR_ITS ---
FINAL REPORT TECHNIQUE: Multiplanar MR, without and with gadolinium enhancement CLINICAL HISTORY: encephalopathy, memory loss 19ml prohance injected COMPARISON: None FINDINGS: Diffusion sequences show no signal abnormality to indicate acute infarct. No mass, hemorrhage or edema is seen. There is moderate atrophy. There are extensive white matter signal changes within both hemispheres consistent with moderate chronic microvascular disease. Small chronic lacunar infarcts are noted in the right basal ganglia and right-sided white matter. Ventricles are normal. Major vascular flow voids are intact. Following contrast administration, no mass or abnormal enhancement is seen. IMPRESSION: Advanced chronic microvascular changes. Reviewed, Interpreted and Dictated by Nadia Bosch MD Transcribed by Kayla Mike Authenticated and [facility]
== END ==
PROVIDERS: PCP Nurse Practitioner; Visit Provider Nurse Practitioner Family
DX: G47.30 Sleep apnea, unspecified (principal); G93.40 Encephalopathy, unspecified; I10 Essential (primary) hypertension; R26.9 Unspecified abnormalities of gait and mobility; R42 Dizziness and giddiness; R44.3 Hallucinations, unspecified; R51.9 Headache, unspecified
CPT/HCPCS: 70553; A9576; J1642

== ENCOUNTER 2023-07-19 11:18 | Emergency (ER) | payer MEDICARE, SELFPAY ==
[2023-07-19] VITALS (15 sets, daily range): BP systolic 106–144; BP diastolic 49–80; PULSE 60–76; RESP 16–20; TEMP 36.8; O2SAT 94–99; BMI 31.1
--- NOTE | 2023-07-19 11:24 | ECG_ITS ---
APPROVED REPORT Exam: Resting ECG HR:71 bpm ECG Measurements Heart Rate 71 AXES QRSd 106 QRS 61 QT 423 T 22 QTc 445 Conclusion ATRIAL FIBRILLATION MODERATE ST DEPRESSION [0.05+ mV ST DEPRESSION] ABNORMAL ECG UNCONFIRMED REPORT Electronically signed by : Martín Man MD 07/20/2023 16:31:24
--- NOTE | 2023-07-19 12:03 | XR_ITS ---
FINAL REPORT CLINICAL HISTORY: dyspnea COMPARISON: 07/13/2023 FINDINGS: Mild cardiomegaly is present. A right chest port is once again identified with its tip in the superior vena cava. The mediastinum is normal. Chronic appearing changes are present in the lung bases, stable since the prior chest x-ray. There are no pleural effusions. There is no pneumothorax. There is no osseous abnormality. IMPRESSION: Chronic appearing changes present in the lung bases, stable since the prior chest x-ray of 07/13/2023. No new infiltrates or effusions are identified. Reviewed, Interpreted and Dictated by Andrea Mckeon MD Transcribed by Shana Houser Authenticated and [facility]
--- NOTE | 2023-07-19 12:12 | HMH.EDGENADL ---
Discharge Plan Disposition Patient Disposition: Still a Patient Prescriptions Prescriptions: No Action multivitamin [Daily Multi-Vitamin] Tablet 1 tab PO DAILY bumetanide 1 mg tablet 1 mg PO DAILY 30 Days Qty: 30 0RF nystatin 100,000 unit/gram Powder 1 unit topical TID 30 Days Qty: 60 0RF levofloxacin 750 mg Tablet 750 mg PO DAILY 4 Days Qty: 4 0RF dicyclomine 20 mg Tablet 20 mg PO TID cetirizine 10 mg Capsule 10 mg PO DAILY Eliquis 5 mg Tablet 5 mg PO BID metoprolol succinate 50 mg Tablet Extended Release 24 Hr 50 mg PO DAILY isosorbide mononitrate 30 mg Tablet Extended Release 24 Hr 30 mg PO DAILY ferrous sulfate 325 mg (65 mg iron) Tablet 325 mg PO DAILY ergocalciferol (vitamin D2) 1,250 mcg (50,000 unit) Capsule 1,250 mcg PO WEEKLY magnesium chloride 70 mg Tablet,Delayed Release (Dr/Ec) 70 mg PO DAILY methocarbamol 1,000 mg Tablet 1,000 mg PO QIDP PRN (Reason: muscle spasms) potassium chloride 20 mEq Tablet,Er Particles/Crystals 20 meq PO DAILY pantoprazole 40 mg Tablet,Delayed Release (Dr/Ec) 40 mg PO BID paroxetine HCl 40 mg Tablet 40 mg PO DAILY Trelegy Ellipta 100-62.5-25 mcg Blister With Device 1 inh INHALATION DAILY Referrals Follow up/Referrals: Luciana Lewis APRN [Primary Care Provider] - See instructions Activity Restrictions/Add. Instructions Additional Instructions/Restrictions: No evidence of a cardiopulmonary emergency. You are on Levaquin which was adequate coverage for pulmonary and renal coverage. Clinically no evidence of any ongoing pneumonia or respiratory infection. We did not escalate antibiotics further. The main concern today is the functional status that is slowly climbing but with shared decision making you opted to go home to try to get through the holidays and you may return after that point if you feel that you are no longer able to be cared for at home. Clinical Impressions Clinical Impression: Chest pain, Dyspnea Discharge ED Provider: Merrill Kumari General Adult HPI General Chief complaint: Shortness of Breath/Dyspnea Stated complaint: soa Time Seen by Provider: 07/19/23 11:45 Mode of Arrival: Wheelchair Source of Information: Patient Limitations: No Limitations Description of Symptoms (Recalled from ER Triage Doc. by RN): pt to ed via wheelchair c/o shortness of breath. pt states she has had generalized weakness and increased soa with exertion. History of Present Illness HPI narrative: Patient is a 77-year-old with chronic progressive decline over the last 4 to 5 months since her 's passing who was recently hospitalized with concern for a neurologic episode where she became stiff and was diagnosed with a urinary tract infection and questionable pneumonia. She was offered nursing placement but went home with family and they state that today she has gotten worse from a functional standpoint was unable to get herself off of the toilet they had to bring her in their car with them as they were coming to the hospital to lemon picker a home pulse oximeter but in route she started complaining of some chest pain and difficulty breathing. Family states however she has been complaining of pain in multiple locations leading up to this moment. They state that they are not sure that she can be cared for at home anymore. Related Data Home Medications Medication Instructions Recorded Confirmed apixaban 5 mg tablet (Eliquis) 5 mg PO BID Blood Thinner/Afib 05/08/23 07/13/23 cetirizine 10 mg capsule 10 mg PO DAILY Allergy Symptoms 05/08/23 07/13/23 dicyclomine 20 mg tablet 20 mg PO TID irritable bowel 05/08/23 07/13/23 syndrome ergocalciferol (vitamin D2) 1,250 1,250 mcg PO WEEKLY Supplement 05/08/23 07/13/23 mcg (50,000 unit) capsule ferrous sulfate 325 mg (65 mg 325 mg PO DAILY Supplement 05/08/23 07/13/23 iron) tablet fluticasone fur. 100 mcg-umeclid 1 inh inhala
[2023-07-19 12:20] LABS: Basophils % 0.3 % (0.1-2.0); Eosinophils # 0.3 K/mm3 (0.0-0.4); Hematocrit 33.7 % (37.0-47.0); Hemoglobin 10.6 g/dL (12.2-16.2); Lymphocytes # 0.8 K/mm3 (0.7-4.5); Lymphocytes % 12.5 % (10-50); Mean Corpuscular HGB Conc 31.5 g/dL (31.8-35.4); Mean Corpuscular Hemoglobin 28.2 pg (27.0-31.2); Mean Corpuscular Volume 89.5 fl (81-99); Mean Platelet Volume 8.8 fl (7.4-10.4); Monocytes # 0.4 K/mm3 (0.1-1.0); Monocytes % 6.4 % (1.7-9.3); Neutrophils % 76.8 % (37.0-80.0); Platelet Count 220 K/mm3 (142-424); Red Blood Count 3.77 M/mm3 (4.20-5.40); Red Cell Distribution Width 16.4 % (11.5-17.5); White Blood Count 6.5 K/mm3 (4.8-10.8)
[2023-07-19 12:26] LABS: Lactic Acid 1.2 mmol/L (0.7-2.1)
[2023-07-19 12:27] LABS: Alanine Aminotransferase 24 U/L (12-78); Albumin Level 3.3 g/dl (3.5-5.0); Albumin/Globulin Ratio 1.2 (1.1-1.8); Alkaline Phosphatase 126 U/L (38-126); Anion Gap 9.9 mEq/L (5-15); Aspartate Amino Transferase 22 U/L (14-36); Bilirubin,Total 0.3 mg/dl (0.2-1.3); Blood Urea Nitrogen 28 mg/dl (7-17); Carbon Dioxide 31 mmol/L (22.0-30.0); Chloride 99 mmol/L (98-107); Creatinine Clearance Estimated 43 mL/min (50-200); Estimated Glomerular Filt Rate 40 ml/min (>60); GFR (African American) 48 ML/MIN (>60); Globulin 2.8 g/dL (1.3-3.2); Glucose 122 mg/dl (74-100); Magnesium 1.3 mg/dl (1.6-2.3); Phosphorous 3.7 mg/dl (2.5-4.5); Potassium 3.9 mmoL/L (3.5-5.1); Sodium 136 mmol/L (136-145); Total Protein,Serum 6.1 g/dl (6.3-8.2)
[2023-07-19 12:32] LABS: D-Dimer 1.04 ug/mL (0.0-0.5)
[2023-07-19 12:56] LABS: Troponin I < 0.01 ng/ml (0.00-0.034)
--- NOTE | 2023-07-19 13:28 | CT_ITS ---
FINAL REPORT TECHNIQUE: The patient was injected with IV contrast. Axial images were obtained through the chest in a PE protocol. 3-D reconstruction images were also performed. Individualized dose reduction techniques using automated exposure control or adjustment of the MA and/or KV according to patient's size were employed. CLINICAL HISTORY: cp, shortness of breath, elevated dimer COMPARISON: None FINDINGS: Right chest port catheter tip is in the SVC. Mediastinal vasculature is adequately opacified. No pulmonary artery filling defects are identified to suggest PE. There is no aortic dissection. There is no axillary adenopathy. There is no hilar or mediastinal mass or adenopathy. The heart size is normal. There is healed fracture deformity of the right posterior chest wall. There is no pericardial or pleural effusion. There is scarring in the medial left upper lobe and posterior right lower lobe. Presumed scarring in the medial left upper lobe has a rounded appearance on the coronal images. Limited images of the upper abdomen demonstrate a large mass encasing the mesenteric vessels. It includes the celiac and SMA. Mass appears to extend into the root of the mesentery. It measures 6.3 cm in diameter. The full extent of the mass is not seen. IMPRESSION: Large mass encasing the mesenteric vessels concerning for either pancreatic neoplasm or lymphoma. Recommend infused abdomen and pelvis CT for further evaluation. In addition, PET-CT and tissue sampling may be of value. Rounded density medial left upper lobe. Follow-up chest CT recommended in 3 months. Reviewed, Interpreted and Dictated by Andrea Mckeon MD Transcribed by Kayla Mike Authenticated and [facility]
[2023-07-19 13:52] LABS: Microscopic, Urine URINE MICROSCOPIC (MICROSCOPIC)
[2023-07-19 13:55] LABS: Appearance,Urine CLEAR (Clear); Bilirubin,Urine Negative (Negative); Blood, Urine Negative (Negative); Color,Urine YELLOW (Yellow); Glucose,Urine (UA) Negative (Negative); Ketones,Urine Negative (Negative); Leukocyte Esterase,Urine TRACE (Negative); Nitrate,Urine Negative (Negative); PH,Urine 7.5 (5.0-8.5); Protein,Urine Negative (Negative); Urobilinogen,Urine 0.2 EU/dl (0.2)
[2023-07-19 14:55] LABS: Squamous Epithelial Cell,Urine Occasional #/hpf (0-5); WBC,Urine Occasional #/hpf (0-3)
--- NOTE | 2023-07-19 17:08 | CT_ITS ---
PROCEDURE INFORMATION: Exam: CT Abdomen And Pelvis With Contrast Exam date and time: 07/19/2023 7:14 PM Age: 77 years old Clinical indication: Abdominal pain; Additional info: Ruq ap, CT chest showed malignancy TECHNIQUE: Imaging protocol: Computed tomography of the abdomen and pelvis with contrast. Radiation optimization: All CT scans at this facility use at least one of these dose optimization techniques: automated exposure control; mA and/or kV adjustment per patient size (includes targeted exams where dose is matched to clinical indication); or iterative reconstruction. Contrast material: ISOVUE; Contrast volume: 75 ml; Contrast route: IV; REPORTING DATA: Count of CT and Cardiac NM exams in prior 12 months: This patient has received 0 known CTs and 0 known cardiac nuclear medicine studies in the 12 months prior to the current study. COMPARISON: CT ANGIO CHEST PE PROTOCOL 07/19/2023 2:16 PM FINDINGS: Liver: Mild diffuse intrahepatic biliary ductal dilation. Liver is otherwise unremarkable. Gallbladder and bile ducts: Gallbladder is not visualized, either contracted or surgically absent. Mild dilation of the common bile duct. Pancreas: Mild fatty stranding about the pancreatic head and adjacent portion of the duodenal. Spleen: Normal. No splenomegaly. Adrenal glands: Normal. No mass. Kidneys and ureters: Normal. No hydronephrosis. Stomach and bowel: 5.6 cm duodenal diverticulum with surrounding fatty stranding. No evidence of bowel obstruction. Appendix: No evidence of appendicitis. Intraperitoneal space: Unremarkable. No free air. No significant fluid collection. Retroperitoneal space: 9.2 x 8.0 x 5.9 cm soft tissue mass in the upper abdomen appears retroperitoneal in location, located posterior to the pancreas and completely encasing the celiac artery, superior mesenteric artery and a small portion of the portal vein. No discrete fat plane between the mass and pancreas seen on series 3, image 38. Vasculature: Unremarkable. No abdominal aortic aneurysm. Lymph nodes: Unremarkable. No enlarged lymph nodes. Urinary bladder: Unremarkable as visualized. Reproductive: Uterus is surgically absent. No adnexal abnormality. Bones/joints: Moderate multilevel degenerative disc disease and facet arthropathy. No acute fracture. Soft tissues: Unremarkable. IMPRESSION: 1. 9.2 cm retroperitoneal mass in the upper abdomen encasing multiple vessels as described. Differential diagnosis would include gastrointestinal primary such as GI stromal tumor or lymphoma versus pancreatic carcinoma as most likely etiologies. Tissue sampling recommended. 2. 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 Differential diagnosis would include mild duodenitis versus pancreatitis.
--- NOTE | 2023-07-19 18:19 | PC.NURSE ---
Rounded on patient with Jose Luis COOPER. Patient had a BM. Helped clean patient up and placed new linens and warm blankets provided
--- NOTE | 2023-07-19 20:16 | PC.NURSE ---
on phone with hospitalist
--- NOTE | 2023-07-19 20:28 | PC.NURSE ---
contacting [facility] for possible transfer
--- NOTE | 2023-07-19 20:29 | PC.NURSE ---
speaking with Dr Amezcua @ transfer center
--- NOTE | 2023-07-19 20:43 | P.PN_ITS ---
Subjective *Date: 07/19/23 *Time: 20:43 Interval history: Patient was handed off at shift change from Dr. Kumari. At time of handoff, CTAPE scan was negative for PE. On rads review, patient was found to have malignancy in epigastric region. CT AP was obtained and was notable for 9.2 cm retroperitoneal mass in the upper abdomen encasing multiple vessels as described. Differential diagnosis would include gastrointestinal primary such as GI stromal tumor or lymphoma versus pancreatic carcinoma as most likely etiologies. At this time, the case was discussed with [facility] edition noted that he did not have the appropriate specialties to address this new diagnosis. was consulted for possible transfer and given the patient was stable and otherwise at baseline, [facility] noted that there are multisystems diverts and could not accept the patient at this time. However, offered to put an emergent referral to the surgical oncology clinic for the patient to come see them hopefully next week. Family was all in agreement with this plan as well as the patient. Exam Data for Last 24 hours Vital signs and Labs for Last 24 Hours: Temp Pulse Resp BP Pulse Ox O2 Del Method 98.2 F 75 20 144/72 H 99 Room Air 07/19/23 11:49 07/19/23 19:01 07/19/23 11:49 07/19/23 19:01 07/19/23 19:01 07/19/23 16:01 Laboratory Results - last 24 hr 07/19/23 11:37: WBC 6.5, RBC 3.77 L, Hgb 10.6 L, Hct 33.7 L, MCV 89.5, MCH 28.2, MCHC 31.5 L, RDW 16.4, Plt Count 220, MPV 8.8, Neut % (Auto) 76.8, Lymph % (Auto) 12.5, [place] % (Auto) 6.4, Eos % (Auto) 4.0, Baso % (Auto) 0.3, Neut # (Auto) 5.0, Lymph # (Auto) 0.8, [place] # (Auto) 0.4, Eos # (Auto) 0.3, Baso # (Auto) 0.0, D-Dimer 1.04 H, Sodium 136, Potassium 3.9, Chloride 99, Carbon Dioxide 31 H, Anion Gap 9.9, BUN 28 H, Creatinine 1.30 H, Estimated Creat Clear 43, Estimated GFR 40 L, Est GFR ( Amer) 48 L, Glucose 122 H, Calcium 8.0 L, Phosphorus 3.7, Magnesium 1.3 L, Total Bilirubin 0.3, AST 22, ALT 24, Alkal ine Phosphatase 126, Troponin I < 0.01, Total Protein 6.1 L, Albumin 3.3 L, Globulin 2.8, Albumin/Globulin Ratio 1.2 07/19/23 12:09: Lactate 1.2 07/19/23 13:45: Urine Color Yellow, Urine Appearance Clear, Urine pH 7.5, Ur Specific [place] 1.020, Urine Protein Negative, Urine Glucose (UA) Negative, Urine Ketones Negative, Urine Blood Negative, Urine Nitrate Negative, Urine Bilirubin Negative, Urine Urobilinogen 0.2, Ur Leukocyte Esterase Trace, Urine RBC None, Urine WBC Occasional, Ur Squamous Epith Cells Occasional, Urine Bacteria None I & O for Last 24 hours: Intake & Output 07/16/23 07/17/23 07/18/23 07/19/23 23:59 23:59 23:59 23:59 Weight 74.843 kg
== END 2023-07-19 21:13 | disposition home or self-care (01) ==
PROVIDERS: Student in an Organized Health Care Education/Training Program; Emergency Provider Emergency Medicine; PCP Nurse Practitioner
DX: R07.89 Other chest pain (principal); R06.02 Shortness of breath; R53.1 Weakness; I25.10 Atherosclerotic heart disease of native coronary artery without angina pectoris; I11.9 Hypertensive heart disease without heart failure; I48.0 Paroxysmal atrial fibrillation; K21.9 Gastro-esophageal reflux disease without esophagitis; D50.9 Iron deficiency anemia, unspecified; Z79.01 Long term (current) use of anticoagulants
CPT/HCPCS: 71045; 71275; 74177; 80053; 81001; 83605; 83735; 84100; 84484; 85025; 85378; 93005; 99285; Q9967